=== PATIENT | male | born 1945 | race Caucasian/White ===

== ENCOUNTER 2019-11-16 09:47 | Emergency (ER) | payer OTHER, MEDICARE ==
[~2019-11-16] VITALS: Ht 177.8 cm; Wt 70.0 kg
[~2019-11-16 09:47] MED LIST: ASPIRIN325 MG OR; ATENOLOL25 MG OR; CEPH500C57 OR; CYCLOBENZAPR10 MG OR; ENDUR-ACIN500 MG OR; MOTRIN400 MG OR; MOTRIN800 MG OR; PERCOCET 5/325M1 TAB OR; PLAVIX75 MG OR; SIMVASTATIN40 MG OR; ULTRAM50 MG OR; VICODIN1 TAB OR; ZESTRIL5 MG OR; bp pill
[2019-11-16 10:20] VITALS: BP 144/68
[2019-11-16] MEDS ORDERED: CIPROFLOXACN500 MG PO (11:01)
[2019-11-16] MEDS ORDERED: METRONIDAZOL500 MG PO (11:01)
== END 2019-11-16 11:25 | disposition home or self-care (01) | DRG 605 ==
LOC: ED 09:47
DX: S91.332A Puncture wound without foreign body, left foot, initial encounter (principal); I10 Essential (primary) hypertension; E78.5 Hyperlipidemia, unspecified; W26.8XXA Contact with other sharp object(s), not elsewhere classified, initial encounter

== ENCOUNTER 2024-06-11 12:35 | Emergency (ER) | payer OTHER, MEDICARE ==
[~2024-06-11] VITALS: Ht 177.8 cm; Wt 96.0 kg
[2024-06-11] VITALS (11 sets, daily range): BP systolic 121–152; BP diastolic 60–105
[~2024-06-11 12:35] MED LIST changes: +CIPROFLOXACN500 MG PO; +METRONIDAZOL500 MG PO
[2024-06-11 14:15] LABS: BASO% 0.4 % (0-3); EOS% 5.9 % (0-8); HEMATOCRIT 32.2 % (39.0-50.0); HEMOGLOBIN 10.9 g/dl (14.0-18.0); IMMATURE GRANULOCYTES 0.2 % (0.0-5.0); LYMPH% 13.5 % (15-41); MEAN CELL VOLUME 89.9 fL CALC (80.0-100.0); MEAN CORPUSCULAR HGB 30.4 pG CALC (26.0-32.0); MEAN CORPUSCULAR HGB CONC 33.9 g/dL CAL (32.0-36.0); MONO% 7.2 % (2-13); NEUT# 3.34 thou/uL (1.82-7.42); NEUT% 72.8 % (42-76); RED BLOOD COUNT 3.58 mill/uL (4.70-6.10); RED CELL DISTRI WIDTH 13.1 % (11.5-15.5)
[2024-06-11 14:31] LABS: BILIRUBIN, TOTAL 0.7 mg/dL (0.2-1.3); CREATININE 0.8 mg/dL (0.7-1.3); POTASSIUM 3.6 mmol/l (3.5-5.1)
[2024-06-11 14:32] LABS: ALBUMIN 3.6 g/dL (3.2-5.0); TOTAL PROTEIN 5.5 g/dL (6.3-8.2)
[2024-06-11 16:28] LABS: URINE BILIRUBIN - DIPSTICK Negative (NEGATIVE); URINE BLOOD DIPSTICK Negative (NEGATIVE); URINE GLUCOSE - DIPSTICK 100 mg/dL (NEGATIVE); URINE KETONE Trace mg/dL (NEGATIVE); URINE LEUK ESTERASE Negative (NEGATIVE); URINE NITRITE - DIPSTICK Negative (Negative); URINE PH 5.5 (4.5-8.0); URINE PROTEIN - DIPSTICK Negative (NEG-TRACE); URINE UROBILINOGEN - DIPSTICK 0.2 E.U./dL (0.2)
[2024-06-11 16:29] LABS: URINE COLOR Yellow
== END 2024-06-11 16:40 | disposition home or self-care (01) | DRG 605 ==
LOC: ED 12:35
PROVIDERS: Nurse Practitioner Family
DX: S50.12XA Contusion of left forearm, initial encounter (principal); S50.11XA Contusion of right forearm, initial encounter; S50.812A Abrasion of left forearm, initial encounter; S50.811A Abrasion of right forearm, initial encounter; S80.812A Abrasion, left lower leg, initial encounter; S80.811A Abrasion, right lower leg, initial encounter; E11.9 Type 2 diabetes mellitus without complications; R41.3 Other amnesia; I10 Essential (primary) hypertension; E78.5 Hyperlipidemia, unspecified; I25.2 Old myocardial infarction; W11.XXXA Fall on and from ladder, initial encounter; Y93.H9 Activity, other involving exterior property and land maintenance, building and construction; Y92.007 Garden or yard of unspecified non-institutional (private) residence as the place of occurrence of the external cause; Z86.73 Personal history of transient ischemic attack (TIA), and cerebral infarction without residual deficits; Z79.82 Long term (current) use of aspirin; Z95.5 Presence of coronary angioplasty implant and graft; Z86.79 Personal history of other diseases of the circulatory system